=== PATIENT | female | born 1960 | race Caucasian/White ===

== ENCOUNTER → 2017-04-08 | Outpatient (CLI) | payer OTHER ==
[2016-07-12 23:56] VITALS: BP 169/83
[~2017-04-08] MED LIST: AZIT250T PO; HYDR-79 PO; PRED50TA PO
--- NOTE | 2017-04-08 15:04 | RAD ---
Indication cough. Frontal and lateral views of the chest were obtained. Comparison is made to a study 07/13/2016. The heart and pulmonary vessels appear normal. The lungs are clear. There has not been a significant change compared to the prior study. IMPRESSION: No acute process. No significant change
== END | disposition home or self-care (01) ==
LOC: DXRAD 12:26
PROVIDERS: ATTEND Nurse Practitioner
DX: R05 Cough (principal)
CPT/HCPCS: 71020

== ENCOUNTER 2018-07-18 10:02 | Inpatient (IN) | payer BC ==
[~2018-07-18] VITALS: Ht 168.9 cm; Wt 139.7 kg
[~2018-07-18 10:02] MED LIST changes: +ATOR20TA PO; +BUPR300T3 PO; +HYDR-1179 PO; -HYDR-79 PO; +OLME1TAB25 PO; +OMEP40CA5 PO; +SERT100T PO
[2018-07-18 11:29] VITALS: BP 166/94
[2018-07-18] MEDS ORDERED: ONDANSETRON ODT 4 MG TAB.RAPDIS PO PRN (11:45)
[2018-07-18 12:30] LABS: BASO # 0.1 x10^3/uL (0.0-0.2); BASO % 1 % (0-3); EOS # 0.1 x10^3/uL (0.0-0.7); EOS % 1 % (0-3); HEMATOCRIT 41.5 % (36.0-47.0); HEMOGLOBIN 13.5 g/dL (12.0-15.5); LYMPH # 1.4 x10^3/uL (1.0-4.8); LYMPH % 13 % (24-48); MEAN CORPUSCULAR HEMOGLOBIN 26 pg (25-35); MEAN CORPUSCULAR HGB CONC 33 g/dL (31-37); MEAN CORPUSCULAR VOLUME 80 fL (79-100); MONO # 0.5 x10^3/uL (0.0-1.1); MONO % 5 % (0-9); NEUT # 8.8 x10^3uL (1.8-7.7); NEUT % 81 % (31-73); PLATELET COUNT 217 x10^3/uL (140-400); RED BLOOD COUNT 5.21 x10^6/uL (3.50-5.40); RED CELL DISTRIBUTION WIDTH 16.6 % (11.5-14.5); WHITE BLOOD COUNT 10.9 x10^3/uL (4.0-11.0)
[2018-07-18 12:53] LABS: ALBUMIN 3.2 g/dL (3.4-5.0); ALBUMIN/GLOBULIN RATIO 0.8 (1.0-1.7); CALCIUM 8.9 mg/dL (8.5-10.1); CREATININE 0.9 mg/dL (0.6-1.0); GFR 64.5; POTASSIUM 3.9 mmol/L (3.5-5.1); TOTAL BILIRUBIN 0.3 mg/dL (0.2-1.0); TOTAL PROTEIN 7.1 g/dL (6.4-8.2)
[2018-07-18] MEDS: IV NORMAL SALINE 1,000ML 1,000 ML IV SCH ×2 (13:06→23:41)
[2018-07-18] MEDS: HEPARIN for SUB-Q USE 5,000 UNIT/ML VIAL. SQ SCH ×2 (13:17→22:11)
[2018-07-18] MEDS: MORPHINE SULFATE 2 MG/ML DISP.SYRIN. IV PRN ×3 (13:50→23:44)
[2018-07-18] MEDS: ONDANSETRON ODT 4 MG TAB.RAPDIS PO PRN (13:50)
[2018-07-18] MEDS ORDERED: LOSA100T14 PO (14:16)
[2018-07-18 14:58] VITALS: BP 147/88
[2018-07-18] MEDS: PANTOPRAZOLE IV 40 MG VIAL. IVP SCH (16:13)
[2018-07-18 16:24] LABS: BILIRUBIN,URINE NEG (NEG); CLARITY,URINE CLEAR; COLOR,URINE YELLOW; GLUCOSE,URINE NEG (NEG); NITRITE,URINE NEG (NEG); UROBILINOGEN,URINE 0.2 mg/dL (0.2 mg/dL)
[2018-07-18 16:25] LABS: BACTERIA,URINE FEW /HPF (0-FEW); RBC,URINE OCC /HPF (0-2); SQUAMOUS EPITHELIAL CELL,UR MOD /LPF; WBC,URINE OCC /HPF (0-4)
--- NOTE | 2018-07-18 17:13 | RAD ---
CHEST PA LATERAL Clinical indications: chest pain and shortness of breath. COMPARISON: April 08, 2017. Findings: No acute lung infiltrate or pleural effusion or pulmonary edema or lung mass or pneumothorax is seen. The heart size, pulmonary vasculature, mediastinum and both nikki are unremarkable. The osseous structures appear intact. Impression: No acute radiographic abnormality is seen. Electronically signed by: Minh Patel MD (07/18/2018 5:08 PM) [facility]
[2018-07-18 17:58] VITALS: BP 140/84
--- NOTE | 2018-07-18 18:38 | RAD ---
Examination: ABDOMEN COMPLETE History: ABD PAIN Comparison/Correlation: None Findings: Upper abdominal ultrasound exam was performed. Liver is enlarged measuring 21.6 cm longitudinal with hyperechoic appearance. Common bile duct measures 0.3 cm diameter. No biliary dilatation. Gallbladder is unremarkable. No gallbladder calculi. No pericholecystic fluid or gallbladder wall thickening. Right kidney measures 11.1 cm x 5.5 cm x 5 cm. Left kidney measures 11.17 x 5.16 x 5 cm. No hydronephrosis. No renal calculi. Proximal pancreas is unremarkable. Distal pancreas is obscured by bowel gas. Portal venous direction of flow is unremarkable. Abdominal aorta is not well-visualized. Spleen measures 12.5 cm longitudinal. Impression: Fatty infiltration of the liver. Hepatomegaly. Electronically signed by: Michael Dominguez MD (07/18/2018 6:34 PM) [facility]
[2018-07-18 19:09] VITALS: BP 127/75
[2018-07-18 22:11] VITALS: BP 121/76
[2018-07-19 01:13] LABS: HEMOGLOBIN A1C 6.1 % (4.8-5.6)
[2018-07-19 05:20] VITALS: BP 125/82
[2018-07-19] MEDS: HEPARIN for SUB-Q USE 5,000 UNIT/ML VIAL. SQ SCH ×3 (05:56→21:53)
[2018-07-19 06:15] LABS: BASO # 0.1 x10^3/uL (0.0-0.2); BASO % 1 % (0-3); EOS # 0.1 x10^3/uL (0.0-0.7); EOS % 2 % (0-3); HEMATOCRIT 40.3 % (36.0-47.0); HEMOGLOBIN 13.1 g/dL (12.0-15.5); LYMPH % 24 % (24-48); MEAN CORPUSCULAR HEMOGLOBIN 26 pg (25-35); MEAN CORPUSCULAR HGB CONC 33 g/dL (31-37); MEAN CORPUSCULAR VOLUME 80 fL (79-100); MONO # 0.4 x10^3/uL (0.0-1.1); MONO % 5 % (0-9); NEUT # 5.7 x10^3uL (1.8-7.7); NEUT % 68 % (31-73); PLATELET COUNT 207 x10^3/uL (140-400); RED BLOOD COUNT 5.03 x10^6/uL (3.50-5.40); RED CELL DISTRIBUTION WIDTH 16.8 % (11.5-14.5); WHITE BLOOD COUNT 8.4 x10^3/uL (4.0-11.0)
[2018-07-19 06:24] LABS: CALCIUM 8.2 mg/dL (8.5-10.1); CREATININE 0.9 mg/dL (0.6-1.0); GFR 64.8; POTASSIUM 3.8 mmol/L (3.5-5.1)
[2018-07-19] MEDS ORDERED: CETIRIZINE HCL 10 MG TABLET PO PRN (07:30)
[2018-07-19] MEDS ORDERED: PANTOPRAZOLE IV 40 MG VIAL. IVP SCH (07:30)
[2018-07-19] MEDS: SERTRALINE 100 MG TABLET. PO SCH (08:02)
[2018-07-19] MEDS: ACETAMINOPHEN 325 MG TABLET PO PRN ×3 (08:02→21:03)
[2018-07-19] MEDS: LOSARTAN 50 MG TABLET. PO SCH (08:02)
[2018-07-19] MEDS: PANTOPRAZOLE IV 40 MG VIAL. IVP SCH (08:02)
[2018-07-19] MEDS: ATORVASTATIN CALCIUM 20 MG TABLET PO SCH (08:02)
[2018-07-19] MEDS: buPROPion XL 300 MG TAB.ER.24H. PO SCH (08:03)
[2018-07-19] MEDS ORDERED: HYDROCHLOROTHIAZIDE PO SCH (09:00)
[2018-07-19] MEDS ORDERED: OLMESARTAN PO SCH (09:00)
[2018-07-19] MEDS: IV NORMAL SALINE 1,000ML 1,000 ML IV SCH ×2 (16:13→17:45)
[2018-07-19 16:40] VITALS: BP 142/87
--- NOTE | 2018-07-19 17:47 | RAD ---
Hepatobiliary examination HISTORY: Right upper quadrant pain and bloating for 4 months COMPARISON: None FINDINGS: Hepatobiliary examination was performed. Patient was injected with 5.5 mCi technetium 99m Choletec. 8 ounces of Ensure was given. Gallbladder ejection fraction was calculated. There is appropriate radiotracer activity of the liver, common bile duct, and small bowel. There is normal visualization of the gallbladder beginning at about 15 minutes. There is a normal gallbladder ejection fraction of 81%. IMPRESSION: 1. There is normal visualization of the gallbladder and a normal gallbladder ejection fraction. Electronically signed by: Benny Graham MD (07/19/2018 5:44 PM) [facility]
--- NOTE | 2018-07-19 18:09 | RAD ---
Examination: VENOUS LOWER EXTREMITY LEFT History: Lower extremity swelling Comparison/Correlation: None Findings: Left lower extremity venous duplex ultrasound exam was performed. Color Doppler, spectral Doppler, and grayscale imaging performed. Compression and augmentation utilized. Left common femoral vein, superficial femoral vein, greater saphenous vein, popliteal vein, posterior tibial veins are unremarkable. Impression: No left lower extremity DVT. Electronically signed by: Michael Dominguez MD (07/19/2018 6:05 PM) [facility]
[2018-07-19 19:25] VITALS: BP 138/85
[2018-07-19] MEDS: CLOBETASOL EMOLLIENT 0.05% TOPICAL CREAM 15GM TUBE. TP SCH (19:51)
--- NOTE | 2018-07-20 03:10 | PN ---
DATE: 07/19/2018 SUBJECTIVE: A 57-year-old female in with abdominal pain, right upper quadrant pain. The patient is resting fairly comfortably, making fairly good progress overall. We will get PET scan and make further evaluation on her after that has been completed. PHYSICAL EXAMINATION: VITAL SIGNS: The patient's blood pressure is 140/80, respiratory rate 20, pulse 80, afebrile. GENERAL: The patient is alert and oriented. LUNGS: Diminished, but clear. CARDIOVASCULAR: Stable. ABDOMEN: Soft, diffuse tenderness in the right upper quadrant area. IMPRESSION: Abdominal pain with nausea, epigastric pain as well. PLAN: The patient continues to be monitored carefully. Make further evaluation on her as indicated. DEAN HUANG MD DR: RICK/cecilio JOB#: [id number] / [id number]
[2018-07-20] MEDS: MORPHINE SULFATE 2 MG/ML DISP.SYRIN. IV PRN ×2 (03:19→05:17)
[2018-07-20] MEDS: ONDANSETRON ODT 4 MG TAB.RAPDIS PO PRN (05:16)
[2018-07-20] MEDS: IV NORMAL SALINE 1,000ML 1,000 ML IV SCH (05:17)
[2018-07-20] MEDS: HEPARIN for SUB-Q USE 5,000 UNIT/ML VIAL. SQ SCH (05:23)
[2018-07-20 05:31] VITALS: BP 160/82
[2018-07-20] MEDS ORDERED: PANTOPRAZOLE 40 MG TABLET. PO SCH (07:30)
[2018-07-20] MEDS: buPROPion XL 300 MG TAB.ER.24H. PO SCH (07:33)
[2018-07-20] MEDS: SERTRALINE 100 MG TABLET. PO SCH (07:33)
[2018-07-20] MEDS: ATORVASTATIN CALCIUM 20 MG TABLET PO SCH (07:33)
[2018-07-20] MEDS: CLOBETASOL EMOLLIENT 0.05% TOPICAL CREAM 15GM TUBE. TP SCH (07:34)
[2018-07-20] MEDS: LOSARTAN 50 MG TABLET. PO SCH (07:34)
[2018-07-20] MEDS ORDERED: SIMETHICONE 80 MG TAB.CHEW PO PRN (09:30)
[2018-07-20 10:05] VITALS: BP 153/93
[2018-07-20] MEDS ORDERED: SIME80TA14 PO (10:57)
[2018-07-20] MEDS ORDERED: ACET325T9 PO (10:57)
[2018-07-20] MEDS ORDERED: CETI10TA16 PO (10:57)
[2018-07-20] MEDS ORDERED: CLOB15CR2 TP (10:57)
--- NOTE | 2018-07-20 12:32 | DS ---
DATE OF DISCHARGE: 07/20/2018 HOSPITAL COURSE: The patient in with abdominal pain over her epigastric area with some nausea, unable to keep things down. The patient is not able only to take in liquids. The patient was monitored while in the hospital. Urine cultures were negative. Amylase and lipase were unremarkable. The patient made fairly good progress overall. IMAGING: PIPIDA scan was negative showing good ejection fraction of the liver. No acute radiological evidence of any other abnormality was noted at this time. The patient will be needing a scope. She does have hepatomegaly. She will be seen as an outpatient by Gastroenterology for further evaluation and treatment of the situation of her epigastric pain. IMPRESSION: Abdominal pain with nausea, vomiting, epigastric pain, morbid obesity, essential hypertension. The patient will be discharged home and follow up as an outpatient with GI medicine. DEAN HUANG MD DR: RICK/cecilio JOB#: [id number] / [id number]
== END 2018-07-20 12:14 | disposition home or self-care (01) | DRG 392 ==
LOC: EDBD 10:42 → 1 SOUTH 10:42
PROVIDERS: ADMIT Family Medicine; ATTEND Family Medicine
DX: K21.9 Gastro-esophageal reflux disease without esophagitis (principal); Z68.42 Body mass index [BMI] 45.0-49.9, adult; F32.9 Major depressive disorder, single episode, unspecified; F41.9 Anxiety disorder, unspecified; E66.01 Morbid (severe) obesity due to excess calories; I10 Essential (primary) hypertension; Z88.8 Allergy status to other drugs, medicaments and biological substances; Z90.49 Acquired absence of other specified parts of digestive tract; Z23 Encounter for immunization
CPT/HCPCS: 36415; 71046; 76700; 80048; 80053; 81001; 82150; 82947; 83036; 83690; 84443; 85025; 85379; 87086; 90471; 90756; 93971; 99406; A9537; C9113; J1644; J2270; Q0162; J7030; Q2035

== ENCOUNTER 2018-07-26 02:41 | Emergency (ER) | payer BC ==
[~2018-07-26] VITALS: Ht 168.9 cm; Wt 139.0 kg
[~2018-07-26 02:41] MED LIST changes: +ACET325T9 PO; +CETI10TA16 PO; +CLOB15CR2 TP; +LOSA100T14 PO; +SIME80TA14 PO
[2018-07-26] MEDS ORDERED: TRAM50TA PO (02:59)
[2018-07-26] MEDS ORDERED: gas x (02:59)
[2018-07-26] MEDS ORDERED: mylanta (02:59)
--- NOTE | 2018-07-26 03:21 | PHYS DOC ---
Past History Past Medical History: Anxiety, Depression, Hypertension Past Surgical History: Appendectomy Alcohol Use: None Drug Use: None Adult General Chief Complaint Chief Complaint: UPPER EXTREMITY PAIN HPI HPI 57-year-old female presents with right arm tingling. The patient was admitted to the hospital several days ago for abdominal pain. After she was discharged, she began have this tingling/paresthesia type feeling in her right arm starting at the wrist going up to her shoulder. For the last 1-2 days, the sensation is started at about her elbow and gone up to her shoulder and across the right side of her chest. She states that this is been accompanied by a burning feeling in her skin. It mostly bothers her when she sitting still. If she is up and active, she doesn't really notice it. She does not have any chest pain or shortness of breath or diaphoresis. Patient has no history of falls or trauma. She has no previous history of shoulder or arm complications. She denies rash. She denies fever or chills. She does want to make sure she does not having any lung or heart problems. Review of Systems Review of Systems Constitutional: Denies fever or chills [] Eyes: Denies change in visual acuity, redness, or eye pain [] HENT: Denies nasal congestion or sore throat [] Respiratory: Denies cough or shortness of breath [] Cardiovascular: No additional information not addressed in HPI [] GI: Denies abdominal pain, nausea, vomiting, bloody stools or diarrhea [] : Denies dysuria or hematuria [] Musculoskeletal: Right arm tingling[] Integument: Denies rash or skin lesions [] Neurologic: Denies headache, focal weakness or sensory changes [] Endocrine: Denies polyuria or polydipsia [] All other systems were reviewed and found to be within normal limits, except as documented in this note. Allergies Allergies Allergies Coded Allergies Type Severity Reaction Last Updated Verified cephalexin Allergy Intermediate 07/12/16 Yes hydrocodone Allergy Intermediate Itching 07/18/18 Yes Physical Exam Physical Exam Constitutional: Well developed, well nourished, no acute distress, non-toxic appearance. [] HENT: Normocephalic, atraumatic, bilateral external ears normal, oropharynx moist, no oral exudates, nose normal. [] Eyes: PERRLA, EOMI, conjunctiva normal, no discharge. [] Neck: Normal range of motion, no tenderness, supple, no stridor. [] Cardiovascular:Heart rate regular rhythm, no murmur [] Lungs & Thorax: Bilateral breath sounds clear to auscultation [] Abdomen: Bowel sounds normal, soft, no tenderness, no masses, no pulsatile masses. [] Skin: Warm, dry, no erythema, no rash. A couple of areas of ecchymosis on her abdomen consistent with Lovenox injections.[] Back: No tenderness, no CVA tenderness. [] Extremities: No tenderness, no cyanosis, no clubbing, ROM intact, no edema. [] Neurologic: Alert and oriented X 3, normal motor function, normal sensory function, no focal deficits noted. [] Psychologic: Affect normal, judgement normal, mood normal. [] EKG EKG Sinus rhythm, rate 72, normal axis, no ST elevations or depressions.[] Radiology/Procedures Radiology/Procedures [] Impressions: Chest PA and lateral 07/26/2018. Reason for exam: Right-sided pain. Comparison is made with a study of 07/18/2018. No infiltrate or effusion is seen. Heart size and pulmonary vascularity appear normal. IMPRESSION: No acute disease. Electronically signed by: Pa Lundy Jr., MD (07/26/2018 3:32 AM) [id number] DICTATED AND SIGNED BY: PA LUNDY Jr, MD DATE: 07/26/18 0331 CC: CHANO LEE DO; DEAN HUANG MD ~ Course & Med Decision Making Course & Med Decision Making Pertinent Labs and Imaging studies reviewed. (See chart for details) Patient's EKG is unremarkable. Her chest x-rays negative for acute findings. The patient's labs are unremarkable. Her troponin is negative. The patient has been doing a lot of housework as she is living with her mother who is ill. It seems most likely that the patient has some kind of inflammatory process or overuse injury in the neck or shoulder girdle. I have advised that she try ibuprofen for a few days if this does not improve to discuss with her PCP other options such as physical therapy. She was greatly reassured by her results. She is ready to go home. She is stable for discharge at this time. [] Dragon Disclaimer Dragon Disclaimer This electronic medical record was generated, in whole or in part, using a voice recognition dictation system. Departure Departure: Referrals: DEAN HUANG MD (PCP) CHANO LEE DO Jul 26, 2018 03:21
--- NOTE | 2018-07-26 03:36 | RAD ---
Chest PA and lateral 07/26/2018. Reason for exam: Right-sided pain. Comparison is made with a study of 07/18/2018. No infiltrate or effusion is seen. Heart size and pulmonary vascularity appear normal. IMPRESSION: No acute disease. Electronically signed by: Pa Neumann Jr., MD (07/26/2018 3:32 AM) [facility]
--- NOTE | 2018-07-26 03:50 | EKG ---
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
[2018-07-26 04:03] LABS: BASO # 0.1 x10^3/uL (0.0-0.2); BASO % 1 % (0-3); EOS # 0.1 x10^3/uL (0.0-0.7); EOS % 1 % (0-3); HEMATOCRIT 42.8 % (36.0-47.0); HEMOGLOBIN 13.8 g/dL (12.0-15.5); LYMPH # 2.2 x10^3/uL (1.0-4.8); LYMPH % 18 % (24-48); MEAN CORPUSCULAR HEMOGLOBIN 26 pg (25-35); MEAN CORPUSCULAR HGB CONC 32 g/dL (31-37); MEAN CORPUSCULAR VOLUME 80 fL (79-100); MONO # 0.6 x10^3/uL (0.0-1.1); MONO % 5 % (0-9); NEUT # 9.2 x10^3uL (1.8-7.7); NEUT % 75 % (31-73); PLATELET COUNT 246 x10^3/uL (140-400); RED BLOOD COUNT 5.38 x10^6/uL (3.50-5.40); RED CELL DISTRIBUTION WIDTH 17.1 % (11.5-14.5); WHITE BLOOD COUNT 12.3 x10^3/uL (4.0-11.0)
[2018-07-26 04:17] LABS: ALBUMIN 3.4 g/dL (3.4-5.0); ALBUMIN/GLOBULIN RATIO 0.9 (1.0-1.7); CALCIUM 8.9 mg/dL (8.5-10.1); CREATININE 0.9 mg/dL (0.6-1.0); GFR 64.8; POTASSIUM 3.5 mmol/L (3.5-5.1); TOTAL BILIRUBIN 0.5 mg/dL (0.2-1.0); TOTAL PROTEIN 7.4 g/dL (6.4-8.2)
[2018-07-26 04:30] VITALS: BP 168/84
== END 2018-07-26 04:36 | disposition home or self-care (01) ==
LOC: ER 02:41
DX: R20.2 Paresthesia of skin (principal); S30.1XXA Contusion of abdominal wall, initial encounter; F41.9 Anxiety disorder, unspecified; F32.9 Major depressive disorder, single episode, unspecified; I10 Essential (primary) hypertension; Z88.1 Allergy status to other antibiotic agents; Z88.5 Allergy status to narcotic agent; X58.XXXA Exposure to other specified factors, initial encounter; Y93.89 Activity, other specified; Y92.89 Other specified places as the place of occurrence of the external cause; Y99.8 Other external cause status
CPT/HCPCS: 36415; 71046; 80053; 84484; 85025; 93005; 99284

== ENCOUNTER 2018-09-12 10:42 | Inpatient (IN) | payer BC ==
[~2018-09-12] VITALS: Ht 168.9 cm; Wt 138.5 kg
[~2018-09-12 10:42] MED LIST changes: +TRAM50TA PO; +gas x; +mylanta
--- NOTE | 2018-09-12 11:27 | PHYS DOC ---
Past History Past Medical History: Anxiety, Arthritis, Depression, High Cholesterol, Hypertension, Pneumonia Past Surgical History: Appendectomy Alcohol Use: None Drug Use: None Adult General Chief Complaint Chief Complaint: HYPERTENSION HPI HPI 57 yo female presents with chest heaviness and shortness of breath. She initially came in because her blood pressure has been elevated since last night. She has a wrist cuff that she checks at home. She also has had an upper abdominal "heaviness" and has had a productive cough for more than a week. She denies fever or chills at home. She has been told she is at risk for COPD due to her smoking history, but no official diagnosis. She does not currently take any COPD medications. Review of Systems Review of Systems Constitutional: Denies fever or chills [] Eyes: Denies change in visual acuity, redness, or eye pain [] HENT: Denies nasal congestion or sore throat [] Respiratory: Reactive cough with shortness of breath[] Cardiovascular: No additional information not addressed in HPI [] GI: Upper abdominal pain, nausea. Denies vomiting, bloody stools or diarrhea [] : Denies dysuria or hematuria [] Musculoskeletal: Denies back pain or joint pain [] Integument: Denies rash or skin lesions [] Neurologic: Denies headache, focal weakness or sensory changes [] Endocrine: Denies polyuria or polydipsia [] All other systems were reviewed and found to be within normal limits, except as documented in this note. Allergies Allergies Allergies Coded Allergies Type Severity Reaction Last Updated Verified cephalexin Allergy Intermediate 09/12/18 Yes hydrocodone Allergy Intermediate Itching 09/12/18 Yes Physical Exam Physical Exam Constitutional: Well developed, morbidly obese, well nourished, no acute distress, non-toxic appearance. [] HENT: Normocephalic, atraumatic, bilateral external ears normal, oropharynx moist, no oral exudates, nose normal. [] Eyes: PERRLA, EOMI, conjunctiva normal, no discharge. [] Neck: Normal range of motion, no tenderness, supple, no stridor. [] Cardiovascular:Heart rate regular rhythm, no murmur [] Lungs & Thorax: Bilateral breath sounds decreased with mild wheezing at the bilateral bases.[] Abdomen: Bowel sounds normal, soft, no tenderness, no masses, no pulsatile masses. [] Skin: Warm, dry, no erythema, no rash. [] Back: No tenderness, no CVA tenderness. [] Extremities: No tenderness, no cyanosis, no clubbing, ROM intact, no edema. [] Neurologic: Alert and oriented X 3, normal motor function, normal sensory function, no focal deficits noted. [] Psychologic: Affect normal, judgement normal, mood normal. [] Current Patient Data Vital Signs Vital Signs Date Time Temp Pulse Resp B/P (MAP) Pulse Ox O2 Delivery O2 Flow Rate FiO2 09/12/18 10:44 98.3 79 18 93 Room Air EKG EKG [] Radiology/Procedures Radiology/Procedures [] Impressions: Examination: CHEST PA LATERAL History: Chest pain and shortness of breath Comparison/Correlation: 07/26/2018 PA and lateral chest x-ray exam Findings: Frontal and lateral views of chest were obtained. Heart size and pulmonary vasculature are normal. No infiltrate or pleural effusion. No pneumothorax. Sclerosis involving the left humeral neck which probably represents enchondroma or other benign process is present. Impression: No acute process. Electronically signed by: Winter Espino MD (09/12/2018 11:20 AM) [id number] DICTATED AND SIGNED BY: WINTER ESPINO MD DATE: 09/12/18 1120 CC: CHANO LEE DO; DEAN HUANG MD Course & Med Decision Making Course & Med Decision Making Pertinent Labs and Imaging studies reviewed. (See chart for details) The patient's labs are remarkable for a slightly elevated CO2 and a low anion gap. She also has a troponin of 0.019. Review of her chart shows she has had an elevated troponin 0.017 a few months ago. Her chest x-ray is unremarkable. Her EKG is unremarkable. Her blood pressure is elevated. Her last reading was 182/ 93. I will treat her with clonidine. I have given the patient a DuoNeb treatment for her wheezing. I will treat her as a COPD exacerbation also give 125 Solu-Medrol. The patient was given education on proper use of an albuterol inhaler with a spacer. She has not used a spacer in the past. I discussed the patient with Dr. Armenta and he has agreed to admit the patient for COPD management as well as trending of her troponin and blood pressure management. Patient is in agreement with this plan. 25 minutes of critical care time was spent on this patient exclusive of other billable procedures. [] Dragon Disclaimer Dragon Disclaimer This electronic medical record was generated, in whole or in part, using a voice recognition dictation system. Departure Departure: Impression: Primary Impression: COPD with acute exacerbation Additional Impressions: Hypertension Elevated troponin Disposition: ADMITTED INPATIENT Admitting Physician: Dean Huang Condition: STABLE Referrals: DEAN HUANG MD (PCP) Problem Qualifiers Additional Impressions: Hypertension Hypertension type: essential hypertension Qualified Codes: I10 - Essential ( primary) hypertension CHANO LEE DO Sep 12, 2018 11:27
--- NOTE | 2018-09-12 11:41 | EKG ---
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
[2018-09-12 11:42] LABS: BASO # 0.1 x10^3/uL (0.0-0.2); BASO % 1 % (0-3); EOS # 0.1 x10^3/uL (0.0-0.7); EOS % 1 % (0-3); HEMATOCRIT 42.4 % (36.0-47.0); HEMOGLOBIN 13.6 g/dL (12.0-15.5); LYMPH # 1.3 x10^3/uL (1.0-4.8); LYMPH % 12 % (24-48); MEAN CORPUSCULAR HEMOGLOBIN 25 pg (25-35); MEAN CORPUSCULAR HGB CONC 32 g/dL (31-37); MEAN CORPUSCULAR VOLUME 79 fL (79-100); MONO # 0.6 x10^3/uL (0.0-1.1); MONO % 5 % (0-9); NEUT # 8.8 x10^3uL (1.8-7.7); NEUT % 81 % (31-73); PLATELET COUNT 259 x10^3/uL (140-400); RED BLOOD COUNT 5.37 x10^6/uL (3.50-5.40); RED CELL DISTRIBUTION WIDTH 16.6 % (11.5-14.5); WHITE BLOOD COUNT 10.8 x10^3/uL (4.0-11.0)
[2018-09-12 11:56] LABS: ALBUMIN 3.5 g/dL (3.4-5.0); ALBUMIN/GLOBULIN RATIO 0.8 (1.0-1.7); CALCIUM 8.9 mg/dL (8.5-10.1); CREATININE 0.8 mg/dL (0.6-1.0); GFR 74.2; POTASSIUM 3.8 mmol/L (3.5-5.1); TOTAL BILIRUBIN 0.3 mg/dL (0.2-1.0); TOTAL PROTEIN 7.7 g/dL (6.4-8.2)
[2018-09-12] MEDS ORDERED: IPRATRPIUM/ALBUTEROL 0.5/2.5MG 3 ML NEBU. NEB ONE (12:00)
[2018-09-12] MEDS ORDERED: ONDANSETRON PF 4 MG/2 ML VIAL. IV ONE (12:00)
[2018-09-12] MEDS ORDERED: BENZONATATE 100 MG CAPSULE. PO ONE ×2 (12:24→12:50)
[2018-09-12] MEDS ORDERED: cloNIDine HCL 0.1 MG TABLET ONE (12:24)
[2018-09-12] MEDS ORDERED: cloNIDine HCL 0.1 MG TABLET PO ONE (12:50)
[2018-09-12] MEDS ORDERED: ONDANSETRON PF 4 MG/2 ML VIAL. IV PRN (13:45)
[2018-09-12 14:52] VITALS: BP 162/97
[2018-09-12] MEDS ORDERED: CETI10TA16 PO (15:15)
[2018-09-12] MEDS ORDERED: ACET325T9 PO (15:15)
[2018-09-12] MEDS ORDERED: BUPR200T2 PO (15:15)
[2018-09-12] MEDS ORDERED: LORA-254 PO (15:20)
[2018-09-12] MEDS ORDERED: PANT40TA3 PO (15:20)
--- NOTE | 2018-09-12 15:22 | NUR ---
NSG NOTE; ADMISSION ADMIT TO ROOM 123 FROM ED AT 1434 VIA CART ACCOMP BY EMS PERSONNEL. C/O URI X 1 WEEK WITH INCREASING CHEST PRESSURE AND SOA, AND ELEV BP WHICH CAUSED HER TO COME TO THE ED
[2018-09-12] MEDS: amLODIPine BESYLATE 5 MG TABLET PO SCH (18:04)
[2018-09-12] MEDS: LISINOPRIL 20 MG TABLET PO SCH (18:05)
[2018-09-12 19:46] VITALS: BP 138/90
[2018-09-12] MEDS: LORazepam 1 MG TABLET PO PRN ×2 (20:54→20:55)
[2018-09-12] MEDS ORDERED: SERTRALINE 100 MG TABLET. PO SCH (21:00)
[2018-09-12 23:00] VITALS: BP 133/86
[2018-09-13] MEDS: ACETAMINOPHEN 325 MG TABLET PO PRN ×2 (00:14→16:49)
[2018-09-13] MEDS ORDERED: PROMETH/CODEINE 6.25/10MG 5 ML SYRUP. PO PRN (01:35)
[2018-09-13] MEDS ORDERED: PROMETH/CODEINE 6.25/10MG 5 ML SYRUP. ONE (01:46)
[2018-09-13 05:42] VITALS: BP 119/55
[2018-09-13] MEDS: LISINOPRIL 20 MG TABLET PO SCH (08:39)
[2018-09-13] MEDS: amLODIPine BESYLATE 5 MG TABLET PO SCH (08:40)
[2018-09-13] MEDS ORDERED: ATORVASTATIN CALCIUM 20 MG TABLET PO SCH (09:00)
[2018-09-13] MEDS ORDERED: buPROPion SR 100 MG TABLET.SA. PO SCH (09:00)
--- NOTE | 2018-09-13 10:17 | PDOC2 ---
CONSULT Date of Admission DATE: 09/13/18 TIME: 10:16 Reason for Consult: cp, sob, htn Problem List Problems Medical Problems: (1) COPD with acute exacerbation Status: Acute (2) Elevated troponin Status: Acute (3) Hypertension Status: Acute History of Present Illness Ms Siegel is a 57 year old female who presented to the ED with complaints of chest tightness, shortness of breath and uncontrolled blood pressure. She reports of chest heaviness that she describes as a feeling like a medium sized dog laying on her chest with associated feeling of inability to catch her breath. She also complains of a feeling of mid to upper abdominal fullness or bloating. She initially reports that the chest heaviness and dyspnea were exertional with ADLS and walking in the house. She then described the abdominal fullness and shortness of breath as constant. On further discussion she appeared to be unable to differentiate between the symptoms or specifically relate worsening or improvement to any activity or action. She complains of chronic fatigue and falling asleep frequently during day. She reports fear of driving due to these symptoms. She does have a diagnosis of sleep apnea but got rid of her CPAP previously. She reports difficulty with her blood pressure control lately. She denies any specific triggers. She states that she was diabetic but is not any longer. She reports a loss of about 75 lbs and complains of excess skin. She complains of chronic pain and neuropathy especially in her feet. She denies orthopnea or PND but reports that she sleeps in a recliner due to sleep apnea and GERD. She complains that she never gets good sleep. Cardiovascular: HTN Pulmonary: COPD, Pneumonia, Other (EDEL currently off CPAP) GI: GERD, Peptic Ulcer disease Psych: Anxiety, Depression Musculoskeletal: Osteoarthritis, Other (she reports history of multiple broken bones due to sports injuries) Rheumatologic: Fibromyalgia Renal/: Urinary Incontinence Endocrine: Diabetes Past Surgical History: Appendectomy Family History: Alcohol Abuse, Coronary Artery Disease, Diabetes, High Cholestrol, Hypertension, Kidney Disease Social History + smoker, denies illicit drugs or excessive alcohol. She reports significant life stress recently involved in caring for her mother. Current Medications Current Medications Albuterol/ Ipratropium (Duoneb) 3 ml 1X ONCE NEB Last administered on at 12:05; Start 09/12/18 at 12:00; Stop 09/12/18 at 12:01; Status DC Ondansetron HCl (Zofran) 4 mg 1X ONCE IV Last administered on 09/12/18at 12:32 ; Start 09/12/18 at 12:00; Stop 09/12/18 at 12:01; Status DC Benzonatate (Tessalon Perle) 100 mg 1X ONCE PO Last administered on 09/12/18at 12:30; Start 09/12/18 at 12:50; Stop 09/12/18 at 12:52; Status DC Clonidine HCl (Catapres) 0.1 mg 1X ONCE PO Last administered on 09/12/18at 12: 31; Start 09/12/18 at 12:50; Stop 09/12/18 at 12:52; Status DC Ondansetron HCl (Zofran) 4 mg PRN Q4HRS PRN IV NAUSEA/VOMITING; Start 09/12/18 at 13:45; Stop 09/13/18 at 13:44 Acetaminophen (Tylenol) 650 mg PRN Q4HRS PRN PO FEVER/PAIN Last administered on 09/13/18at 00:14; Start 09/12/18 at 17:45 Atorvastatin Calcium (Lipitor) 20 mg DAILY PO Last administered on 09/13/18 08 :39; Start 09/13/18 at 09:00 Lorazepam (Ativan) 1 mg PRN DAILY PRN PO ANXIETY / AGITATION Last administered on 09/12/18at 20:55; Start 09/12/18 at 17:45 Sertraline HCl (Zoloft) 100 mg HS PO Last administered on 09/12/18 20:54; Start 09/12/18 at 21:00 Bupropion HCl (Wellbutrin Sr) 200 mg DAILY PO Last administered on 09/13/18 08 :39; Start 09/13/18 at 09:00 Amlodipine Besylate (Norvasc) 5 mg DAILY PO Last administered on 09/13/18 08: 40; Start 09/12/18 at 17:45 Lisinopril (Prinivil) 20 mg DAILY PO Last administered on 09/13/18at 08:39; Start 09/12/18 at 18:00 Clonidine HCl (Catapres) 0.1 mg STK-MED ONCE .ROUTE ; Start 09/12/18 at 12:24; Stop 09/13/18 at 02:15; Status DC Benzonatate (Tessalon Perle) 100 mg STK-MED ONCE PO ; Start 09/12/18 at 12:24; Stop 09/13/18 at 02:15; Status DC Promethazine HCl/ Codeine (Phenergan With Codeine Oral Syrup) 5 ml STK-MED ONCE .ROUTE Last administered on 09/13/18at 01:50; Start 09/13/18 at 01:46; Stop 07/20 at 02:21; Status DC Promethazine HCl/ Codeine (Phenergan With Codeine Oral Syrup) 5 ml PRN Q4HRS PRN PO COUGH Last administered on 09/13/18at 01:50; Start 09/13/18 at 01:35 Active Scripts Active Reported Ativan (Lorazepam) 1 Mg Tablet 1 Mg PO DAILY PRN Protonix (Pantoprazole Sodium) 40 Mg Tablet.dr 1 Tab PO DAILY06 Tylenol (Acetaminophen) 325 Mg Tablet 2 Tab PO PRN Q4HRS PRN Wellbutrin Sr (Bupropion Hcl) 200 Mg Tablet.er 1 Tab PO DAILY Cetirizine Hcl 10 Mg Tablet 1 Tab PO DAILY PRN Losartan Potassium 100 Mg Tablet 100 Mg PO DAILY Lipitor (Atorvastatin Calcium) 20 Mg Tablet 1 Tab PO DAILY Zoloft (Sertraline Hcl) 100 Mg Tablet 1 Tab PO HS Allergies: Coded Allergies: cephalexin (Verified Allergy, Intermediate, 09/12/18) hydrocodone (Verified Allergy, Intermediate, Itching, 09/12/18) Review of System as per hPI General: Alert, Oriented X3, Cooperative, No acute distress HEENT: Atraumatic, EOMI Lungs: Other (expiratory wheezing otherwise clear) Heart: Normal S1, Normal S2, Other (no obvious murmurs, no gallops, clicks or rubs) Abdomen: Normal bowel sounds, Soft, No tenderness, Other (obese) Extremities: No cyanosis, No edema, Normal pulses, Other (venous stasis skin changes bilateral lower ext) Neuro: Normal speech, Strength at 5/5 X4 ext Psych/Mental Status: Mental status NL, Mood NL VITALS Vital Signs Date Time Temp Pulse Resp B/P (MAP) Pulse Ox O2 Delivery O2 Flow Rate FiO2 09/13/18 08:40 80 119/55 09/13/18 08:00 Room Air 09/13/18 05:42 98.6 24 92 2.0 Labs Laboratory Tests Test 09/12/18 11:25 09/12/18 16:23 09/12/18 19:55 White Blood Count 10.8 x10^3/uL (4.0-11.0) Red Blood Count 5.37 x10^6/uL (3.50-5.40) Hemoglobin 13.6 g/dL (12.0-15.5) Hematocrit 42.4 % (36.0-47.0) Mean Corpuscular Volume 79 fL (79-100) Mean Corpuscular Hemoglobin 25 pg (25-35) Mean Corpuscular Hemoglobin Concent 32 g/dL (31-37) Red Cell Distribution Width 16.6 % (11.5-14.5) Platelet Count 259 x10^3/uL (140-400) Neutrophils (%) (Auto) 81 % (31-73) Lymphocytes (%) (Auto) 12 % (24-48) Monocytes (%) (Auto) 5 % (0-9) Eosinophils (%) (Auto) 1 % (0-3) Basophils (%) (Auto) 1 % (0-3) Neutrophils # (Auto) 8.8 x10^3uL (1.8-7.7) Lymphocytes # (Auto) 1.3 x10^3/uL (1.0-4.8) Monocytes # (Auto) 0.6 x10^3/uL (0.0-1.1) Eosinophils # (Auto) 0.1 x10^3/uL (0.0-0.7) Basophils # (Auto) 0.1 x10^3/uL (0.0-0.2) Sodium Level 139 mmol/L (136-145) Potassium Level 3.8 mmol/L (3.5-5.1) Chloride Level 101 mmol/L (98-107) Carbon Dioxide Level 35 mmol/L (21-32) Anion Gap 3 (6-14) Blood Urea Nitrogen 9 mg/dL (7-20) Creatinine 0.8 mg/dL (0.6-1.0) Estimated GFR (Cockcroft-Gault) 74.2 BUN/Creatinine Ratio 11 (6-20) Glucose Level 116 mg/dL (70-99) Calcium Level 8.9 mg/dL (8.5-10.1) Total Bilirubin 0.3 mg/dL (0.2-1.0) Aspartate Amino Transf (AST/SGOT) 14 U/L (15-37) Alanine Aminotransferase (ALT/SGPT) 24 U/L (14-59) Alkaline Phosphatase 122 U/L (46-116) Troponin I Quantitative 0.019 ng/mL (0-0.055) < 0.017 ng/mL (0-0.055) < 0.017 ng/mL (0-0.055) Total Protein 7.7 g/dL (6.4-8.2) Albumin 3.5 g/dL (3.4-5.0) Albumin/Globulin Ratio 0.8 (1.0-1.7) Images EKG - sinus rhythm without acute ischemic changes Assessment/Plan 1. Chest pain with mixed features - GA ruled out. No acute ischemic changes on EKG. As stated above she was unable to provide clear history and/or differentiate clearly between chest discomfort or abdominal discomfort. We will check echo for LF function, structure and wall motion. Check lipid profile. Start daily aspirin. No beta crow now due to prob COPD and active wheezing. As she does have multiple risk factors, suggest outpatient MPI if echo has no significant abnormalities 2. Acute bronchitis - per PCP 3. Hypertension - continue lisinopril and amlodipine, titrate as necessary. Consider addition of metoprolol once wheezing resolves. 4. Hyperlipidemia - check lipids. Adjust statin as indicated. 5. tobaccoism - cessation encouraged 6. morbid obesity- weight reduction encouraged. ERAN VEGA APRN Sep 13, 2018 10:17
[2018-09-13 10:47] VITALS: BP 155/94
[2018-09-13] MEDS ORDERED: PERFLUTREN PROTEIN-A MICROSPHR 0.22 MG/ML 3 ML VIAL. IV ONE (15:45)
[2018-09-13] MEDS ORDERED: AMLO5TAB10 PO (16:31)
[2018-09-13] MEDS ORDERED: ASPI-612 PO (16:31)
[2018-09-13] MEDS ORDERED: LISI-334 PO (16:31)
--- NOTE | 2018-09-13 17:33 | CARD ---
MR#: [id number] Date of Study: 09/13/2018 Ordering Physician: ERAN VEGA, Referring Physician: DEAN HUANG, Tech: Aishwarya Marte APPROVED REPORT EXAM: Two-dimensional and M-mode echocardiogram with Doppler and color Doppler. Other Information Quality : FairHR: 88bpm Technically limited study due to body habitus, COPD, Coughing INDICATION Hypertension/HCVD Elevated Troponin Echo Enhancing Agent Indication: Endocardial border delineation Agent/Amount Used: Putvpoc7vP RISK FACTORS Hypertension Obesity Smoking 2D DIMENSIONS RVDd2.9 (2.9-3.5cm)Left Atrium(2D)2.8 (1.6-4.0cm) IVSd1.4 (0.7-1.1cm)Aortic Root(2D)3.1 (2.0-3.7cm) LVDd4.5 (3.9-5.9cm)LVOT Diameter2.3 (1.8-2.4cm) PWd1.3 (0.7-1.1cm)LVDs2.5 (2.5-4.0cm) FS (%) 45.2 %SV71.5 ml LVEF(%)76.6 (>50%) Aortic Valve AoV Peak Nicholas.196.3cm/sAoV VTI33.9cm AO Peak GR.15.4mmHgLVOT Peak Nicholas.117.1cm/s LVOT VTI 22.42cmAO Mean GR.9mmHg LIONEL (VMAX)2.28je9IPY (VTI)2.83cm2 Mitral Valve MV E Qbcfdqqb062.6cm/sMV DECEL MVAB752yo MV A Rwkjrvhh935.8cm/sE/A Ratio1.0 Pulmonary Valve PV Peak Ueprvbsj520.7cm/sPV Peak Grad.4mmHg Tricuspid Valve TR P. Zvaugjhw580va/sRAP HBBVAVXV5wjRg TR Peak Gr.39vkGnRYGH57xmKt Pulmonary Vein S1 Xqhhcawj31.0cm/sD2 Qvmkplxg75.2cm/s LEFT VENTRICLE The left ventricle is normal size. There is mild to moderate concentric left ventricular hypertrophy. The left ventricular systolic function is normal and the ejection fraction is within normal range. T he Ejection Fraction is >55%. There is normal LV segmental wall motion. Transmitral Doppler flow derrick ngoc is Grade II-pseudonormal filling dynamics. RIGHT VENTRICLE The right ventricle is normal size. There is normal right ventricular wall thickness. The right ventr icular systolic function is normal. ATRIA The left atrium size is normal. The right atrium size is normal. The interatrial septum is intact wit h no evidence for an atrial septal defect or patent foramen ovale as noted on 2-D or Doppler imaging. AORTIC VALVE The aortic valve is not well visualized. Doppler and Color Flow revealed no significant aortic regurg itation. There is no significant aortic valvular stenosis. MITRAL VALVE The mitral valve is not well visualized. There is no mitral valve stenosis. Doppler and Color Flow re vealed no mitral valve regurgitation noted. TRICUSPID VALVE The tricuspid valve is normal in structure and function. Doppler and Color Flow revealed no tricuspid valve regurgitation noted. There is no tricuspid valve stenosis. PULMONIC VALVE The pulmonic valve is not well visualized. Doppler and Color Flow revealed no pulmonic valvular regur gitation. There is no pulmonic valvular stenosis. GREAT VESSELS The aortic root is normal in size. The IVC is normal in size and collapses >50% with inspiration. PERICARDIAL EFFUSION There is a trace pericardial effusion. Critical Notification Critical Value: No <Conclusion> The left ventricular systolic function is normal and the ejection fraction is within normal range. Th e Ejection Fraction is >55%. There is grossly normal LV segmental wall motion. Unable to see any subtle wall motion abnormalities. Technically very difficult study. Signed by : Wild Castañeda, Electronically Approved : 09/13/2018 17:32:33
--- NOTE | 2018-09-13 17:55 | NUR ---
NSG NOTE; DISCHARGE VERBAL AND WRITTEN DISCHARGE INSTRUCTIONS GIVEN TO PT WITH VERBAL UNDERSTANDING RX X2 CALLED TO [facility] DISCHARGE TO HOME VIA AMB ACCOMP BY SO
[2018-09-14] MEDS ORDERED: ASPIRIN ENTERIC COATED 81 MG TABLET.DR. PO SCH (08:00)
--- NOTE | 2018-09-20 10:31 | HP ---
ADMIT DATE: 09/13/2018 HISTORY OF PRESENT ILLNESS: The patient is a 57-year-old female came in with marked chest heaviness, shortness of breath. The patient notes that she has been having problems with her blood pressure, also abdominal with nausea, has had cough, generalized chest discomfort. She is generally very incapacitated with morbid obesity as well as has a strong smoking history. As a result of this, the patient was admitted for rule out ID protocol. PAST MEDICAL HISTORY: Includes hypercholesterolemia, hypertension, COPD, ulcers, appendectomy, morbid obesity, GERD, incontinence, depression, anxiety. The patient is a heavy smoker. Influenza vaccine in fall of 2017. ALLERGIES: KEFLEX and HYDROCODONE. FAMILY HISTORY: Mother with renal failure, hypertension, and atrial fibrillation. Father with alcoholism and diabetes. He is pertinent in the family history. SOCIAL HISTORY: The patient's brother had 50 pack year history of smoking and at times alcohol use. Denies hard drug use. Neurologically, stable there. REVIEW OF SYSTEMS: The patient denies any headaches, visual change, blurred vision. Does have chest pain, shortness of breath, abdominal pain with some nausea. Also notes some problems with breathing, shortness of breath. Denies problems with her bowels or bladder. She also has a problem with sleep apnea. PHYSICAL EXAMINATION: GENERAL: A pleasant white female, morbidly obese. VITAL SIGNS: Blood pressure 213/98, respiratory rate 20, pulse 80, afebrile. HEENT: The patient's head was atraumatic, normocephalic. Eyes: PERRLA without jaundice. Mouth and throat were normal. NECK: Supple, without JVD, carotid bruits. No thyromegaly. LUNGS: Diminished. Poor movement of air. CARDIOVASCULAR: Regular sinus rhythm. ABDOMEN: Soft, markedly protuberant, morbidly obese. EXTREMITIES: No clubbing, cyanosis. Trace +1 edema. Weight 305 pounds. LABORATORY DATA: Basically CBC was unremarkable. Chemistries did show slight elevated blood sugar of 116. Liver enzymes were normal. HDL was 34, but total cholesterol was only 153. Cardiac enzymes were negative. The patient made good progress during the rest of her hospitalization without any complication and made was ready for discharge after her Cardiology reviewed her. Recommended further followup with Cardiology as an outpatient. Also, needs a sleep apnea study, back on her CPAP, consider bariatric surgery. IMPRESSION: Chest pain, hypertensive emergency, morbid obesity, sleep apnea, shortness of breath, sinus tachycardia, hyperglycemia, hypercholesterolemia. PLAN: Continue to monitor the patient currently further evaluation on her as an outpatient. She will be on a low calorie diet, decreased activity, and followup accordingly as an outpatient. DEAN HUANG MD DR: RICK/cecilio JOB#: [id number] / [id number]
--- NOTE | 2018-10-04 12:25 | EKG ---
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
== END 2018-09-13 17:40 | disposition home or self-care (01) | DRG 189 ==
LOC: ER 10:42 → 1 SOUTH 13:44
PROVIDERS: ADMIT Family Medicine; ATTEND Family Medicine
DX: J96.00 Acute respiratory failure, unspecified whether with hypoxia or hypercapnia (principal); J44.1 Chronic obstructive pulmonary disease with (acute) exacerbation; Z68.42 Body mass index [BMI] 45.0-49.9, adult; I16.1 Hypertensive emergency; J44.0 Chronic obstructive pulmonary disease with (acute) lower respiratory infection; J20.9 Acute bronchitis, unspecified; E11.9 Type 2 diabetes mellitus without complications; E66.01 Morbid (severe) obesity due to excess calories; E78.00 Pure hypercholesterolemia, unspecified; E78.5 Hyperlipidemia, unspecified; F17.200 Nicotine dependence, unspecified, uncomplicated; F32.9 Major depressive disorder, single episode, unspecified; F41.9 Anxiety disorder, unspecified; G47.33 Obstructive sleep apnea (adult) (pediatric); G62.9 Polyneuropathy, unspecified; G89.29 Other chronic pain; I10 Essential (primary) hypertension; K21.9 Gastro-esophageal reflux disease without esophagitis; M19.90 Unspecified osteoarthritis, unspecified site; M79.7 Fibromyalgia; Z82.49 Family history of ischemic heart disease and other diseases of the circulatory system; Z83.3 Family history of diabetes mellitus; Z90.49 Acquired absence of other specified parts of digestive tract; Z88.1 Allergy status to other antibiotic agents; Z88.8 Allergy status to other drugs, medicaments and biological substances; R07.89 Other chest pain; E11.65 Type 2 diabetes mellitus with hyperglycemia
CPT/HCPCS: 99285; C8929; 36415; 71046; 80053; 80061; 84484; 85025; 93005; 94640; 96374; 99406; J2405; J7620

== ENCOUNTER → 2020-08-14 | Outpatient (CLI) | payer OTHER ==
[~2020-08-14] MED LIST changes: +AMLO-186 PO; +ASPI-889 PO; +BUPR200T2 PO; +LISI-334 PO; +LORA-254 PO; +OMEP40CA45 PO; -OMEP40CA5 PO; +PANT40TA3 PO
--- NOTE | 2020-08-15 09:14 | RAD ---
Chest radiograph 08/14/2020 3:07 PM INDICATION: Cough COMPARISON: 09/12/2018 TECHNIQUE: Frontal and lateral views of the chest are provided. FINDINGS: The cardiomediastinal silhouette is within normal limits. There are no pleural effusions. There is no pulmonary vascular congestion. There is no pneumothorax. There is flattening of the diaphragms may be seen with air trapping suggestive of underlying COPD. Mi ld hilar prominence on the right appears stable. No new airspace consolidation is identified. No significant osseous abnormality is identified. IMPRESSION: COPD changes without acute cardiopulmonary process. Electronically signed by: Valery Ponce MD (08/15/2020 9:11 AM) [id number]
== END ==
LOC: DXRAD 14:58
PROVIDERS: ATTEND Nurse Practitioner Family
DX: J44.9 Chronic obstructive pulmonary disease, unspecified (principal)
CPT/HCPCS: 71046

== ENCOUNTER → 2020-09-24 | Outpatient (CLI) | payer OTHER ==
[~2020-09-24] MED LIST changes: -LISI-334 PO; +LISI20TA18 PO
--- NOTE | 2020-09-26 08:17 | RAD ---
DATE: 09/24/2020 11:35 AM EXAM: DIGITAL SCREEN BILAT W/CAD HISTORY: Screening COMPARISON: 06/30/2016 Bilateral full field craniocaudal and mediolateral oblique images were obtained using digital technique. This study was interpreted with the benefit of Computerized Aided Detection (CAD). FINDINGS: Breast Density: FATTY The Breast Parenchyma is primarily fatty replaced. Breast parenchyma level density A. No suspicious masses, microcalcifications or architectural distortion is present to suggest malignancy in either breast. The visualized axillae are unremarkable. IMPRESSION: No mammographic evidence of malignancy. BI-RADS CATEGORY: 1 NEGATIVE RECOMMENDED FOLLOW-UP: 12M 12 MONTH FOLLOW-UP Annual screening mammography is recommended, unless clinically indicated sooner based on symptoms or change in physical exam. PQRS compliance statement: Patient information was entered into a reminder system with a target due date for the next mammogram. Mammography is a sensitive method for finding small breast cancers, but it does not detect them all and is not a substitute for careful clinical examination. A negative mammogram does not negate a clinically suspicious finding and should not result in delay in biopsying a clinically suspicious abnormality. "Our facility is accredited by the [employer] Mammography Program."
== END ==
LOC: MAMMO 10:51
PROVIDERS: ATTEND Nurse Practitioner Family
DX: Z12.31 Encounter for screening mammogram for malignant neoplasm of breast (principal)
CPT/HCPCS: 77067

== ENCOUNTER → 2020-10-11 | Outpatient (CLI) | payer OTHER ==
--- NOTE | 2020-10-11 12:15 | RAD ---
EXAM: Chest CT without intravenous contrast. HISTORY: COPD. TECHNIQUE: Computed tomographic images of the chest were obtained without contrast. Multiplanar refor matting was performed. *One or more of the following individualized dose reduction techniques were utilized for this examina tion: 1. Automated exposure control. 2. Adjustment of the mA and/or kV according to patient size. 3. Use of iterative reconstruction technique. COMPARISON: None. FINDINGS: The heart is normal in size. There is calcified atherosclerotic plaque involving the motta ry arteries. There is no lymphadenopathy. There is no pneumothorax. There is no pleural effusion. The re are is 3 mm nodules within the right middle lobe along the minor pleural fissure, likely due to fi ssural lymph nodes. Millimeters linear scarring or atelectasis along the right minor fissure. There i s a 2 mm nodule within the posterior right lower lobe (series 2, image 39). There is a 2 mm nodule wi thin the lateral inferior right middle lobe (series 2, image 60). There is no acute finding involving the visualized upper abdomen. The spleen is upper normal in size. There are degenerative changes inv olving the thoracic spine. There is no acute or suspicious osseous finding. IMPRESSION: 1. No acute thoracic finding. 2. Tiny right-sided pulmonary nodules, largest of which measure 3 mm and are likely fissural lymph no alen. Follow-up can be performed in one year if there are risk factors for pulmonary neoplasm. Electronically signed by: Jesenia Lackey MD (10/11/2020 12:12 PM) [id number]
== END ==
LOC: CT 11:12
PROVIDERS: ATTEND Nurse Practitioner Family
DX: J43.9 Emphysema, unspecified (principal); R91.1 Solitary pulmonary nodule; I25.10 Atherosclerotic heart disease of native coronary artery without angina pectoris; M47.814 Spondylosis without myelopathy or radiculopathy, thoracic region
CPT/HCPCS: 71250

== ENCOUNTER → 2020-12-10 | Outpatient (CLI) | payer OTHER ==
--- NOTE | 2020-12-11 12:45 | CARD ---
MR#: [id number] Date of Study: 12/10/2020 Ordering Physician: YAA LIU, Referring Physician: YAA LIU, Tech: Winsome Harrison SANNA APPROVED REPORT EXAM: Two-dimensional and M-mode echocardiogram with Doppler and color Doppler. Other Information Quality : Technically Limited Rhythm : NSRTechnically limited study due to body habitus. INDICATION Hypertension/HCVD Emphysema RISK FACTORS Obesity 2D DIMENSIONS RVDd2.5 (2.9-3.5cm)Left Atrium(2D)3.2 (1.6-4.0cm) IVSd1.0 (0.7-1.1cm)Aortic Root(2D)2.9 (2.0-3.7cm) LVDd4.7 (3.9-5.9cm)LVOT Diameter2.1 (1.8-2.4cm) PWd1.1 (0.7-1.1cm)LVDs3.0 (2.5-4.0cm) FS (%) 35.3 %SV66.5 ml LVEF(%)64.7 (>50%) Aortic Valve AoV Peak Nicholas.152.6cm/sAoV VTI25.5cm AO Peak GR.9.3mmHgLVOT Peak Nicholas.133.6cm/s LVOT VTI 22.89cmAO Mean GR.6mmHg LIONEL (VMAX)2.62zh5RBJ (VTI)3.01cm2 Mitral Valve MV E Cfteneom014.4cm/sMV DECEL SFDZ054gc MV A Qhbzsiot101.6cm/sE/A Ratio1.1 Pulmonary Vein S1 Ehxsunar35.5cm/sD2 Fexlggwp62.1cm/s LEFT VENTRICLE The left ventricle is normal size. There is normal left ventricular wall thickness. The left ventricu lar systolic function is normal and the ejection fraction is within normal range. The Ejection Fracti on is 60-65%. There is normal LV segmental wall motion. Transmitral Doppler flow pattern is Grade I-a bnormal relaxation pattern. RIGHT VENTRICLE The right ventricle is normal size. The right ventricular systolic function is normal. ATRIA The left atrium size is normal. The right atrium size is normal. The interatrial septum is intact wit h no evidence for an atrial septal defect or patent foramen ovale as noted on 2-D or Doppler imaging. AORTIC VALVE The aortic valve is calcified but opens well. Doppler and Color Flow revealed no significant aortic r egurgitation. There is no significant aortic valvular stenosis. MITRAL VALVE The mitral valve is normal in structure and function. There is no evidence of mitral valve prolapse. There is no mitral valve stenosis. Doppler and Color Flow revealed no mitral valve regurgitation note d. TRICUSPID VALVE The tricuspid valve is normal in structure and function. Doppler and Color Flow revealed no tricuspid valve regurgitation noted. There is no tricuspid valve stenosis. PULMONIC VALVE The pulmonic valve is not well visualized. Doppler and Color Flow revealed no pulmonic valvular regur gitation. There is no pulmonic valvular stenosis. GREAT VESSELS The aortic root is normal in size. The ascending aorta is not well seen. The IVC is normal in size an d collapses >50% with inspiration. PERICARDIAL EFFUSION There is no evidence of significant pericardial effusion. Critical Notification Critical Value: No <Conclusion> The left ventricular systolic function is normal and the ejection fraction is within normal range. Th e Ejection Fraction is 60-65%. There is normal LV segmental wall motion. Technically difficult study. Signed by : Wild Castañeda, Electronically Approved : 12/11/2020 12:45:21
== END ==
LOC: ECHO 13:25
PROVIDERS: ATTEND Nurse Practitioner Family
DX: J44.9 Chronic obstructive pulmonary disease, unspecified (principal); I35.1 Nonrheumatic aortic (valve) insufficiency; I10 Essential (primary) hypertension; R09.02 Hypoxemia
CPT/HCPCS: 93306

== ENCOUNTER 2021-09-05 22:48 | Emergency (ER) | payer OTHER ==
[~2021-09-05] VITALS: Ht 167.6 cm; Wt 118.0 kg
[~2021-09-05 22:48] MED LIST changes: -OMEP40CA45 PO; +OMEP40CA7 PO
--- NOTE | 2021-09-05 22:52 | PHYS DOC ---
Past History Past Medical History: Anxiety, Arthritis, Depression, High Cholesterol, Hypertension, Pneumonia Past Surgical History: Appendectomy Alcohol Use: None Drug Use: None General Adult HPI: HPI: ".. I ve had diarrhea constant the last three days.. it will not stop.. got some cramping... maybe some black stools..." .." feel weak..." Patient is a 60 year old female who presents with above hx and complaints nausea, vomiting, diarrhea, cramping, malaise,, myalgia, subjective fevers, and now feeling weakness. Patient normally follows Dr. Huang. No recent travel. No severe ill contacts. No history of trauma. No history of previous GI bleed. No history of pancreatitis. No history of colitis no history of biliary colic. Patient does have a history of hypercholesterol, hypertension, COPD, ulcers, appendectomy, morbid obesity, GERD, urinary incontinence, depression, anxiety, and deconditioning. Patient denies any intake bad food. Patient's pain is generalized over entire abdomen but some localization to epigastric area. Some rebound epigastric area. Nose Trousseau sign. Does have a small umbilicus hernia. Patient did complete COVID vaccination x3. Did get flu vaccination this season. Review of Systems: Review of Systems: Constitutional: Complains of fever and chills Eyes: Denies change in visual acuity HENT: Denies nasal congestion or sore throat Respiratory: History nonproductive cough Cardiovascular: Denies chest pain or edema GI: Complains of crampy abdominal pain, and diarrhea nausea,. Denies current vomiting, bloody stools. : Denies dysuria Musculoskeletal: Denies back pain or joint pain Integument: Denies rash Neurologic: Denies headache, focal weakness or sensory changes Endocrine: Denies polyuria or polydipsia Lymphatic: Denies swollen glands Psychiatric: Denies depression or anxiety Family History: Family History: There is a family history of renal failure, hypertension, atrial fib, alcoholism father and diabetes. Current Medications: Current Meds: See nursing for home meds Allergies: Allergies: Allergies Coded Allergies Type Severity Reaction Last Updated Verified cephalexin Allergy Intermediate 09/12/18 Yes hydrocodone Allergy Intermediate Itching 09/12/18 Yes Physical Exam: PE: Constitutional: Moderate acute distress, non-toxic appearance. [] HENT: Normocephalic, atraumatic, bilateral external ears normal, oropharynx dry, no oral exudates, nose normal. [] Eyes: PERRLA, EOMI, conjunctiva normal, no discharge. [] Neck: Normal range of motion, no tenderness, supple, no stridor. [] Cardiovascular:Heart rate regular rhythm, no murmur [] Lungs & Thorax: Bilateral breath sounds clear to auscultation [] Abdomen: Bowel sounds are hyper active, soft, rebound epigastric. Obese, . Umbilicus hernia. Panus. Old appendix scar. Rectal excoriated.. No gross blood. Generalized tenderness, no masses, no pulsatile masses. [] Umbilicus area Skin: Warm, dry, no erythema, no rash. Venous stasis Back: No tenderness, no CVA tenderness. [] Extremities: No tenderness, no cyanosis, no clubbing, ROM intact, no edema. No psoas sign. Neurologic: Alert and oriented X 3, normal motor function, normal sensory function, no focal deficits noted. [] Psychologic: Affect anxious, judgement normal, mood normal. [] EKG: EKG: My interpretation EKG shows sinus rhythm 83 bpm. No acute morphology. Time of EKG is 2157[] Radiology/Procedures: Radiology/Procedures: [][place] [address] IMAGING REPORT Signed PATIENT: EMILY GIMENEZ ACCOUNT: [id number] : 1960 LOCATION: ER AGE: 60 SEX: F EXAM STATUS: REG ER ORD. PHYSICIAN: SALOMON JAMES MD REASON: N/V/D X3 DAYS. PAIN PROCEDURE: ACUTE ABDOMEN SERIES PA chest and AP upright and supine abdomen x-rays HISTORY: Nausea, vomiting and diarrhea and abdominal pain. FINDINGS: Heart size is normal. No pulmonary opacities or pleural effusions. Old right lateral rib deformities. Chondroid lesion left humeral neck measuring 2 cm most likely an enchondroma. No pneumoperitoneum. Very little gas within the bowel. No dilated bowel loops or abnormal air-fluid levels evident to suggest ileus or obstruction. Mild lumbar scoliosis. IMPRESSION: No bowel obstruction evident. No acute process in the chest. Electronically signed by: Ling Giraldo MD (09/05/2021 11:11 PM) [facility] DICTATED AND SIGNED BY: LING GIRALDO MD DATE: 09/05/212308 CC: DEAN HUANG MD; SALOMON JAMES MD ~MTH0 0 Heart Score: C/O Chest Pain: N/A Risk Factors: Risk Factors: DM, Current or recent (<one month) smoker, HTN, HLP, family history of CAD, obesity. Risk Scores: Score 0 - 3: 2.5% MACE over next 6 weeks - Discharge Home Score 4 - 6: 20.3% MACE over next 6 weeks - Admit for Clinical Observation Score 7 - 10: 72.7% MACE over next 6 weeks - Early Invasive Strategies Course & Med Decision Making: Course & Med Decision Making Pertinent Labs and Imaging studies reviewed. (See chart for details) Pt. to stay on clear fluid diet- 48 hrs. .No milk or solids. Must allow bowel rest. Take Cipro 500 twice a day, take Flagyl 500 thee times a day. Take Zofran 8 up 4 x day for nausea and vomiting. May have small amount of pepto bismal with stools. Follow up with primary. Consider colonscopic eval. for collitis. Push clear fluids such as apple juice, grape juice, popsicles, Jell-O, Gatorade, Pedialyte,. Return if any concerns. Impression: 1. Abdomen Pain 2. Diarrhea 3. Leukocytosis- 22.3 4. Renal Insuf./ Dehydation Bun 23/Creat 1.,2 5. Colitis. [] Reinaldo Disclaimer: Reinaldo Disclaimer: This electronic medical record was generated, in whole or in part, using a voice recognition dictation system. Departure Departure: Referrals: DEAN HUANG MD (PCP) Scripts Ondansetron Hcl (ONDANSETRON HCL) 8 Mg Tablet 8 MG PO QIDPRN PRN for nv, #30 TAB Prov: SALOMON JAMES MD 09/06/21 Metronidazole (FLAGYL) 375 Mg Capsule 500 MG PO TID for colitis for 10 Days, #40 CAP Prov: SALOMON JAMES MD 09/06/21 Ciprofloxacin (CIPRO) 500 Mg/5 Ml Cherri.mc.rec 500 MG PO BID for colitis for 5 Days, MISC Prov: SALOMON JAMES MD 09/06/21 Reinaldo Disclaimer This chart was dictated in whole or in part using Voice Recognition software in a busy, high-work load, and often noisy Emergency Department environment. It may contain unintended and wholly unrecognized errors or omissions. SALOMON JAMES MD Sep 05, 2021 22:52
--- NOTE | 2021-09-05 23:13 | RAD ---
PA chest and AP upright and supine abdomen x-rays HISTORY: Nausea, vomiting and diarrhea and abdominal pain. FINDINGS: Heart size is normal. No pulmonary opacities or pleural effusions. Old right lateral rib de formities. Chondroid lesion left humeral neck measuring 2 cm most likely an enchondroma. No pneumoper itoneum. Very little gas within the bowel. No dilated bowel loops or abnormal air-fluid levels eviden t to suggest ileus or obstruction. Mild lumbar scoliosis. IMPRESSION: No bowel obstruction evident. No acute process in the chest. Electronically signed by: Donald Giraldo MD (09/05/2021 11:11 PM) [facility]
[2021-09-05] MEDS ORDERED: FAMOTIDINE 20 MG/2 ML VIAL IVP ONE (23:15)
[2021-09-05] MEDS ORDERED: ONDANSETRON PF 4 MG/2 ML VIAL. IVP ONE (23:15)
[2021-09-05] MEDS ORDERED: IV RINGERS SOLUTION,LACTATED 1,000 ML IV SCH (23:15)
[2021-09-05] MEDS ORDERED: KETOROLAC 30 MG/ML VIAL. IVP ONE (23:15)
--- NOTE | 2021-09-05 23:29 | EKG ---
[address] [address] Test Date: 2021-09-05 Test Time: 23:20:04 Pat Name: EMILY GIMENEZ Department: Room: Gender: F Head Rose Grower: WALI : 1960 Requested By: SALOMON JAMES Order Number: [id number] Reading MD: Pa Alcala Measurements Intervals Lane Rate: 73 P: 47 RI: 148 QRS: 58 QRSD: 90 T: 36 QT: 390 QTc: 433 Interpretive Statements SINUS RHYTHM Electronically Signed On 09-08-2021 12:07:58 FACTORY MANAGER by Pa Alcala
[2021-09-06 00:01] LABS: BASO # 0.2 x10^3/uL (0.0-0.2); BASO % 1 % (0-3); EOS # 0.3 x10^3/uL (0.0-0.7); EOS % 1 % (0-3); HEMATOCRIT 50.2 % (36.0-47.0); HEMOGLOBIN 16.6 g/dL (12.0-15.5); LYMPH % 18 % (24-48); MEAN CORPUSCULAR HEMOGLOBIN 27 pg (25-35); MEAN CORPUSCULAR HGB CONC 33 g/dL (31-37); MEAN CORPUSCULAR VOLUME 80 fL (79-100); MONO # 0.9 x10^3/uL (0.0-1.1); MONO % 4 % (0-9); NEUT % 76 % (31-73); PLATELET COUNT 189 x10^3/uL (140-400); RED BLOOD COUNT 6.24 x10^6/uL (3.50-5.40); RED CELL DISTRIBUTION WIDTH 17.6 % (11.5-14.5); WHITE BLOOD COUNT 22.3 x10^3/uL (4.0-11.0)
[2021-09-06 00:06] LABS: FECAL OB PT POSITIVE (NEG)
[2021-09-06 00:07] LABS: CALCIUM 8.4 mg/dL (8.5-10.1); CREATININE 1.2 mg/dL (0.6-1.0); POTASSIUM 3.8 mmol/L (3.5-5.1)
[2021-09-06 00:12] LABS: INFLUENZA A PATIENT NEGATIVE (NEGATIVE); INFLUENZA B PATIENT NEGATIVE (NEGATIVE)
[2021-09-06 00:13] LABS: ALBUMIN 3.2 g/dL (3.4-5.0); DIRECT BILIRUBIN 0.1 mg/dL (0.0-0.2); TOTAL BILIRUBIN 0.4 mg/dL (0.2-1.0); TOTAL PROTEIN 6.7 g/dL (6.4-8.2)
[2021-09-06 00:19] LABS: % EOS 1 % (0-5); % LYMPHS 21 % (24-48); % MONOS 1 % (0-10); % SEGS 77 % (35-66); PLT ESTIMATE ADEQUATE (ADEQUATE)
[2021-09-06 00:38] LABS: BARBITURATES NEG (NEG); BENZODIAZEPINES NEG (NEG); CANNABINOIDS NEG (NEG); COCAINE NEG (NEG); METHADONE NEG (NEG); OPIATES NEG (NEG); PHENCYCLIDINE NEG (NEG)
[2021-09-06 00:40] LABS: AMPHETAMINE/METHAMPHETAMINE NEG (NEG)
[2021-09-06 00:42] LABS: BACTERIA,URINE FEW /HPF (0-FEW); BILIRUBIN,URINE NEG (NEG); CLARITY,URINE HAZY; COLOR,URINE YELLOW; GLUCOSE,URINE NEG (NEG); NITRITE,URINE NEG (NEG); SQUAMOUS EPITHELIAL CELL,UR FEW /LPF; UROBILINOGEN,URINE 0.2 mg/dL (0.2 mg/dL)
[2021-09-06] MEDS ORDERED: ONDA-85 PO (01:58)
[2021-09-06] MEDS ORDERED: METR375C PO (01:58)
[2021-09-06] MEDS ORDERED: CIPR500S2 PO (01:58)
[2021-09-06 02:06] VITALS: BP 110/73
[2021-09-06] MEDS ORDERED: metroNIDAZOLE 500 MG TABLET PO ONE (02:15)
[2021-09-06] MEDS ORDERED: CIPROFLOXACIN HCL 500 MG TABLET PO ONE (02:15)
[2021-09-06] MEDS ORDERED: ONDANSETRON PF 4 MG/2 ML VIAL. IVP ONE (02:15)
== END 2021-09-06 02:28 | disposition home or self-care (01) ==
LOC: ER 22:48
DX: K52.9 Noninfective gastroenteritis and colitis, unspecified (principal); D72.829 Elevated white blood cell count, unspecified; M19.90 Unspecified osteoarthritis, unspecified site; E78.00 Pure hypercholesterolemia, unspecified; I10 Essential (primary) hypertension; Z20.822 Contact with and (suspected) exposure to COVID-19; Z90.89 Acquired absence of other organs; Z88.1 Allergy status to other antibiotic agents; Z88.5 Allergy status to narcotic agent
CPT/HCPCS: 36415; 74022; 80048; 80076; 80307; 81001; 82150; 82274; 82550; 83690; 85007; 85025; 85610; 85730; 87086; 87186; 87428; 93005; 96361; 96374; 96375; 96376; 99285; J1885; J2405; J3490; J7120

== ENCOUNTER → 2021-09-16 | Outpatient (CLI) | payer OTHER ==
[2021-09-06 02:06] VITALS: BP 110/73
[~2021-09-16] MED LIST changes: +CIPR500S2 PO; +METR375C PO; +ONDA-85 PO
--- NOTE | 2021-09-16 10:53 | RAD ---
EXAM: Abdomen and pelvis CT without intravenous contrast. HISTORY: Black stools. TECHNIQUE: Computed tomographic images of the abdomen and pelvis were obtained without contrast. Mult iplanar reformatting was performed. *One or more of the following individualized dose reduction techniques were utilized for this examina tion: 1. Automated exposure control. 2. Adjustment of the mA and/or kV according to patient size. 3. Use of iterative reconstruction technique. COMPARISON: None. FINDINGS: Evaluation of the lower thorax demonstrates no infiltrate or pleural effusion are is a tiny hiatal hernia. There is an elongated right hepatic lobe. No hepatic lesion is seen on this noncontra st exam. The gallbladder is distended, likely due to the preprandial status the patient. There are pa ncreatic calcifications, likely due to the sequela of chronic pancreatitis. The spleen is borderline enlarged. No radiographic lesion is seen. There is no hydronephrosis or suspicious renal lesion. The appendix is not seen. There are no secondary findings to suggest appendicitis. There is colonic d iverticulosis. There is focal fatty stranding surrounding the descending-sigmoid colon junction, like ly due to acute diverticulitis. There is no drainable abscess or free air. There is no bowel obstruct ion. The bladder is unremarkable. There is a tiny right ovarian follicle. The aorta is normal in caliber. No pathologically enlarged lymph node is seen. There is a small fat-c ontaining umbilical hernia. There is no acute or suspicious osseous finding. There is degenerative ch suzie involving the spine. There is grade 1 anterolisthesis at the lower lumbar levels. IMPRESSION: 1. Acute diverticulitis at the descending-sigmoid colon junction. There is no drainable abscess or fr ee air. 2. Borderline hepatosplenomegaly. 3. Pancreatic calcifications due to the sequela of chronic pancreatitis. 4. Tiny hiatal hernia and small fat-containing umbilical hernia. Electronically signed by: Jesenia Lackey MD (09/16/2021 10:51 AM) [id number]
== END ==
LOC: CT 10:10
PROVIDERS: ATTEND Family Medicine
DX: K57.32 Diverticulitis of large intestine without perforation or abscess without bleeding (principal); K44.9 Diaphragmatic hernia without obstruction or gangrene; K42.9 Umbilical hernia without obstruction or gangrene; R16.2 Hepatomegaly with splenomegaly, not elsewhere classified; R11.10 Vomiting, unspecified; R11.0 Nausea; A09 Infectious gastroenteritis and colitis, unspecified; K59.01 Slow transit constipation; K82.8 Other specified diseases of gallbladder; K86.89 Other specified diseases of pancreas; K86.1 Other chronic pancreatitis; M43.16 Spondylolisthesis, lumbar region; M47.817 Spondylosis without myelopathy or radiculopathy, lumbosacral region
CPT/HCPCS: 74176

== ENCOUNTER 2021-12-22 21:55 | Emergency (ER) | payer OTHER ==
[~2021-12-22] VITALS: Ht 167.6 cm; Wt 118.0 kg
[~2021-12-22 21:55] MED LIST changes: +ATOR40TA59 PO; +INDA2.5T PO; +METO-239 PO; +SERT-268 PO; +TRAZ-120 PO
--- NOTE | 2021-12-22 22:58 | PHYS DOC ---
Past History Past Medical History: Anxiety, Arthritis, Depression, High Cholesterol, Hypertension, Pneumonia Additional Past Medical Histor: poor historian for [facility] Past Surgical History: Appendectomy Alcohol Use: Occasionally Drug Use: None General Adult EDM: Chief Complaint: Neck Pain HPI: HPI: ".. Well this all started after drinking a bag of that jonathon mix... There is a mix I picked up in [place] at the gas station... They are just hanging on a belt changer you take him home... And put them in the freezer when you take them out ... Then you got a jonathon mix. I was just laying in bed drinking 1 of those mixes... And all of a sudden felt like my neck was tight ... Like an allergic r eaction or something,,,, so I called an ambulance... For apartment got their first... Then the ambulance showed up... They gave me some epinephrine..." Patient is a 61 year old female who presents with above hx and complaints of allergic reaction. Patient states symptoms started after drinking a bag of jonathon mix. Patient did get epinephrine and Benadryl at the scene. Misty viveros now states her symptoms have primarily resolved. Patient has never drank that type of jonathon mix before. No other new foods. No other new meds. No recent travel. Up-to-date with vaccinations. Does have somewhat significant medical history hypercholesterolemia, hypertension, COPD, ulcers, morbid obesity, depression, incontinence, GERD, anxiety,. Patient does smoke tobacco. States she does not drink alcohol to excess. Patient has had surgeries of appendectomy. Patient normally follows with Dr. Lowery. Review of Systems: Review of Systems: Constitutional: Denies fever or chills Eyes: Denies change in visual acuity HENT: Denies nasal congestion. Complains of tightness in neck Respiratory: Complains of shortness of breath due to neck tightness Cardiovascular: Denies chest pain or edema GI: Denies abdominal pain, nausea, vomiting, bloody stools or diarrhea : Denies dysuria Musculoskeletal: Denies back pain or joint pain Integument: Denies rash Neurologic: Denies headache, focal weakness or sensory changes Endocrine: Denies polyuria or polydipsia Lymphatic: Denies swollen glands Psychiatric: Denies depression or anxiety Family History: Family History: Mother had renal failure and hypertension and atrial fibs. Father history of alcoholism and diabetes Current Medications: Current Meds: See nursing for home meds Allergies: Allergies: Allergies Coded Allergies Type Severity Reaction Last Updated Verified cephalexin Allergy Intermediate 09/12/18 Yes hydrocodone Allergy Intermediate Itching 09/12/18 Yes Physical Exam: PE: Constitutional: no acute distress, non-toxic appearance. [] HENT: Normocephalic, atraumatic, bilateral external ears normal, oropharynx moist, no oral exudates, nose normal. [] Eyes: PERRLA, EOMI, conjunctiva normal, no discharge. [] Neck: Normal range of motion, no tenderness, supple, no stridor. Neck circumference more than 17 inches Cardiovascular:Heart rate regular rhythm, no murmur, PMI to the left Lungs & Thorax: Bilateral breath sounds equal apex with few scattered wheezes auscultation [] Abdomen: Bowel sounds normal, soft, no tenderness, no masses, no pulsatile masses. Morbid obesity. Old surgery scar. Skin: Warm, dry, no erythema, no rash. [] Back: No tenderness, no CVA tenderness. [] Extremities: No tenderness, no cyanosis, no clubbing, ROM intact, no edema. No cording appreciated. Neurologic: Alert and oriented X 3, normal motor function, normal sensory function, no focal deficits noted. [] Psychologic: Affect normal, judgement normal, mood normal. [] EKG: EKG: [] Radiology/Procedures: Radiology/Procedures: [] Heart Score: C/O Chest Pain: N/A Risk Factors: Risk Factors: DM, Current or recent (<one month) smoker, HTN, HLP, family history of CAD, obesity. Risk Scores: Score 0 - 3: 2.5% MACE over next 6 weeks - Discharge Home Score 4 - 6: 20.3% MACE over next 6 weeks - Admit for Clinical Observation Score 7 - 10: 72.7% MACE over next 6 weeks - Early Invasive Strategies Course & Med Decision Making: Course & Med Decision Making Pertinent Labs and Imaging studies reviewed. (See chart for details) Pt. demanding discharge at 2345 hrs. Want no more work up. Advised patient to avoid further intake of the jonathon mix. Follow-up with Dr. Lowery. Review ED work-up. Patient take Pepcid twice a day for the next 10 days. Take prednisone 50 mg x 5 days. Take Benadryl 25 to 50 mg up to 4 times a day. Use MDI 2 puffs 4 times a day. Impression: 1. Allergic reaction 2. Morbid Obesit [] Dragon Disclaimer: Dragcynthia Disclaimer: This electronic medical record was generated, in whole or in part, using a voice recognition dictation system. Departure Departure: Referrals: DEAN LOWERY MD (PCP) Scripts Prednisone (PREDNISONE) 50 Mg Tablet 50 MG PO DAILY for allergy for 5 Days, #5 TAB Prov: SALOMON JAMES MD 12/22/21 Famotidine (PEPCID) 20 Mg Tablet 20 MG PO BID for allergic for 10 Days, #20 TAB Prov: SALOMON JAMES MD 12/22/21 Reinaldo Disclaimer This chart was dictated in whole or in part using Voice Recognition software in a busy, high-work load, and often noisy Emergency Department environment. It may contain unintended and wholly unrecognized errors or omissions. SALOMON JAMES MD December 22, 2021 22:58
[2021-12-22 23:33] VITALS: BP 120/60
[2021-12-22] MEDS ORDERED: FAMOTIDINE 20 MG/2 ML VIAL IVP ONE (23:45)
[2021-12-22] MEDS ORDERED: methylPREDNISolone SOD SUCC PF 125 MG/2 ML VIAL. IV ONE (23:45)
[2021-12-22] MEDS ORDERED: ALBUTEROL SULFATE 8GM INHALER. INH ONE (23:45)
[2021-12-22] MEDS ORDERED: MAGNESIUM HYDROXIDE 2,400 MG/30 ML ORAL.SUSP. PO ONE (23:45)
[2021-12-22] MEDS ORDERED: PRED50TA PO (23:46)
[2021-12-22] MEDS ORDERED: FAMO-63 PO (23:46)
== END 2021-12-23 00:15 | disposition home or self-care (01) ==
LOC: ER 21:55
DX: T78.40XA Allergy, unspecified, initial encounter (principal); E66.01 Morbid (severe) obesity due to excess calories; E78.00 Pure hypercholesterolemia, unspecified; I10 Essential (primary) hypertension; J44.9 Chronic obstructive pulmonary disease, unspecified; K21.9 Gastro-esophageal reflux disease without esophagitis; F41.9 Anxiety disorder, unspecified; M19.90 Unspecified osteoarthritis, unspecified site; F32.9 Major depressive disorder, single episode, unspecified; Z68.41 Body mass index [BMI] 40.0-44.9, adult; Z88.1 Allergy status to other antibiotic agents; Z88.5 Allergy status to narcotic agent; X58.XXXA Exposure to other specified factors, initial encounter
CPT/HCPCS: 94640; 96374; 96375; 99285; J2930; J3490; 94664